=== PATIENT | male | born 1985 | race Caucasian/White ===

== ENCOUNTER 2019-05-26 18:36 | Emergency (ER) | payer OTHER ==
[2019-05-26] MEDS ORDERED: Sodium Chloride 0.9% 10 ML Syringe FLUSH PRN (18:59)
[2019-05-26] MEDS ORDERED: HYDROmorphone 1 MG/ML Syringe IVPUSH ONE (19:00)
[2019-05-26] MEDS ORDERED: Lactated Ringers 1,000 ML IV SCH (19:00)
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
--- NOTE | 2019-05-26 20:22 | CT ---
CT cervical spine Technique: Multiple axial sections were obtained from above C1 inferiorly to the top of T3. Reconstructed sagittal and coronal images were reviewed. Comparison: No prior cervical spine CT exam. Findings: Vertebral body heights and disc spaces are maintained. Vertebral bodies and posterior arches are intact with no fracture being seen. No bony central or bony neural foraminal stenosis is seen. Rim calcified nodule noted within the right thyroid gland measuring 1.1 cm. No abnormal subluxation is seen. Impression: 1. Nothing acute is appreciated on CT study of the cervical spine. 2. 1.1 cm rim calcified nodule within the right lobe of the thyroid gland, nonemergent ultrasound could be obtained to further evaluate. Diagnostic code #3 This report was dictated in MDT
--- NOTE | 2019-05-26 20:22 | CT ---
Head CT Technique: Multiple axial sections through the brain were obtained. Intravenous contrast was not utilized. Comparison: No prior intracranial imaging. Findings: Ventricles along with basal cisterns and sulci over the convexities are within normal limits for the patient's age. No abnormal parenchymal densities are seen. No evidence of intracranial hemorrhage. No midline shift or mass-effect is seen. Bone window settings were reviewed. Opacified left side of the sphenoid sinus is seen. Lesser mucosal thickening is noted within the right side of the sphenoid sinus. Mild mucosal thickening is scattered within the ethmoid sinuses and maxillary sinuses. No fluid is seen within the paranasal sinuses. Mastoid sinuses show nothing acute. No acute calvarial abnormality is appreciated. Several radiopacities are seen within the scalp within the posterior left frontal region presumably due to foreign bodies. Mild associated soft tissue swelling is seen within the scalp. Impression: 1. Sinus disease likely pre-existing and chronic. 2. Several radiopacities within the frontal scalp presumably due to foreign bodies. 3. No acute intracranial abnormality is appreciated. Diagnostic code #2 This report was dictated in MDT
[2019-05-26] MEDS ORDERED: Lidocaine 1% with EPINEPHrine 1:100,000 20 ML MDV INJECT ONE (20:59)
[2019-05-26] MEDS ORDERED: Lidocaine 2% Jelly 10 ML Urojet MUCMEM ONE (21:31)
[2019-05-26 23:28] VITALS: BP 111/80; PULSE 95
--- NOTE | 2019-05-27 06:55 | CR ---
Left knee: Four views of the left knee were obtained. Comparison: No previous knee study. Medial and lateral joint compartments are maintained in height. No joint effusion is seen. No acute fracture or other bony abnormality is appreciated. Small radiopacity is projected within the distal lateral thigh slightly above the knee. This most likely represents foreign body. This finding measures about 3.5 mm in size. Second opacity is noted within the soft tissues of the medial knee. This finding is more linear in configuration and measuring 3.1 mm in greatest measurement. Impression: 1. Two soft tissue opacities around the knee as noted above. Findings most likely represent small foreign bodies. Uncertain if these are within the soft tissues or lie outside the soft tissues. 2. No acute bony abnormality is appreciated. Diagnostic code #3 This report was dictated in MDT
--- NOTE | 2019-05-27 06:55 | CR ---
Chest: AP view of the chest was obtained. Comparison: No prior chest imaging. Heart size and mediastinum are normal. Lungs are clear with no acute parenchymal change. Minimal scoliosis is noted. Impression: 1. Nothing acute is seen on frontal chest x-ray. Diagnostic code #1 This report was dictated in MDT
== END 2019-05-26 22:45 | disposition home or self-care (01) ==
LOC: JD.ED 18:36
DX: S06.0X1A Concussion with loss of consciousness of 30 minutes or less, initial encounter (principal); S51.012A Laceration without foreign body of left elbow, initial encounter; S51.812A Laceration without foreign body of left forearm, initial encounter; S80.02XA Contusion of left knee, initial encounter; M54.2 Cervicalgia; E04.1 Nontoxic single thyroid nodule; F17.210 Nicotine dependence, cigarettes, uncomplicated; V89.2XXA Person injured in unspecified motor-vehicle accident, traffic, initial encounter
CPT/HCPCS: 12002; 36415; 70450; 71045; 72125; 73564; 80053; 83690; 85025; 99284; J1170; J7120